=== PATIENT | female | born 1945 | race Caucasian/White ===

== ENCOUNTER 2020-12-05 12:44 | Outpatient (CLI) | payer MEDICARE, BC ==
[~2020-12-05 12:44] MED LIST: BENA40TA73 PO; DILT-94 PO; OMEP-271 PO
== END 2020-12-05 23:59 | disposition home or self-care (01) ==
LOC: CARD DIAG 12:44
PROVIDERS: ATTEND Internal Medicine
DX: Z01.818 Encounter for other preprocedural examination (principal); C50.112 Malignant neoplasm of central portion of left female breast
CPT/HCPCS: 93306

== ENCOUNTER 2021-02-26 10:02 | Outpatient (CLI) | payer MEDICARE, BC | END 2021-02-26 23:59 | disposition home or self-care (01) | LOC: CARD DIAG 10:02 | PROVIDERS: ATTEND Internal Medicine | DX: Z01.818 Encounter for other preprocedural examination (principal); I08.1 Rheumatic disorders of both mitral and tricuspid valves | CPT/HCPCS: 93306 ==

== ENCOUNTER 2021-05-22 08:31 | Outpatient (CLI) | payer MEDICARE, BC | END 2021-05-22 23:59 | disposition home or self-care (01) | LOC: CARD DIAG 08:31 | PROVIDERS: ATTEND Internal Medicine | DX: C50.112 Malignant neoplasm of central portion of left female breast (principal); I08.1 Rheumatic disorders of both mitral and tricuspid valves; Z51.11 Encounter for antineoplastic chemotherapy | CPT/HCPCS: 93306 ==

== ENCOUNTER 2022-02-19 10:41 | Day surgery (SDC) | payer MEDICARE, BC ==
[~2022-02-19] VITALS: Ht 165.1 cm; Wt 72.7 kg
[2022-02-19 10:50] VITALS: BP 129/62
[2022-02-19] MEDS ORDERED: DILT240C92 PO (11:07)
[2022-02-19] MEDS ORDERED: DULO60CA65 PO (11:07)
[2022-02-19] MEDS ORDERED: GABA-530 (11:07)
[2022-02-19] MEDS ORDERED: TRAM50TA2 PO (11:07)
[2022-02-19] MEDS ORDERED: LEVO50TA8 PO (11:07)
[2022-02-19] MEDS ORDERED: HYDR12.55 PO (11:08)
[2022-02-19] MEDS ORDERED: SIMV10TA98 PO (11:08)
[2022-02-19] MEDS ORDERED: fentaNYL/PF 50MCG/1 ML 2ML syringe ONE (12:14)
[2022-02-19] MEDS ORDERED: MIDAZolam 1 MG/ML 5ML VIAL ONE (12:15)
[2022-02-19 12:53] VITALS: BP 147/77
[2022-02-19 13:03] VITALS: BP 139/67
[2022-02-19 13:13] VITALS: BP 134/67
== END 2022-02-19 13:22 | disposition home or self-care (01) ==
LOC: GI LAB 10:41
PROVIDERS: ATTEND Internal Medicine Gastroenterology
DX: Z09 Encounter for follow-up examination after completed treatment for conditions other than malignant neoplasm (principal); D12.0 Benign neoplasm of cecum; D12.2 Benign neoplasm of ascending colon; K64.8 Other hemorrhoids; K57.30 Diverticulosis of large intestine without perforation or abscess without bleeding; Z86.010 Personal history of colon polyps; Z79.899 Other long term (current) drug therapy
CPT/HCPCS: 45381; 45385; 99153; C1773; G0500; J2250; J3010; J7030; Z7512; 45390; 88305; 99152